=== PATIENT | male | born 1975 | race Caucasian/White ===

== ENCOUNTER 2018-01-04 14:25 | Emergency (ER) | payer OTHER ==
[2018-01-04 14:33] VITALS: BP 126/74; PULSE 64; TEMP 98.4; BMI 38.0
[2018-01-04] MEDS ORDERED: KETOROLAC TROMETHAMINE 60 MG/2 ML VIAL IM ONE (14:51)
[2018-01-04] MEDS ORDERED: KETOROLAC TROMETHAMINE 60 MG/2 ML VIAL ONE (14:57)
--- NOTE | 2018-01-04 14:57 | PDOC ---
History of Present Illness - General Chief Complaint: Pain, Acute Stated Complaint: LT KNEE Time Seen by Provider: 01/04/18 14:47 History Source: Patient Exam Limitations: Clinical Condition - History of Present Illness Initial Comments: 01/04/18 14:52 Patient with no sig Pmhx present with complains of worsening left knee pains for 3 days w/o trauma. Denies previous injury or trauma to knee. report very painful with ambulation and pain alternate between both side of knee and top of patella Timing/Duration: other (3 days) Severity: moderate Modifying Factors: improves with: rest. worse with: movement Associated Symptoms: denies: cough, diaphoresis, fever/chills, headaches, loss of appetite, malaise, nausea/vomiting, rash, seizure, shortness of breath, syncope, weakness, other Aspirin Received prior to arrival: Yes: no aspirin today Past History - Past Medical History Allergies/Adverse Reactions: Allergies Allergy/AdvReac Type Severity Reaction Status Date / Time No Known Allergies Allergy Verified 01/04/18 14:30 Home Medications: Ambulatory Orders Naproxen 500 mg PO BID PRN #20 tablet. 01/04/18 Asthma: Yes - Suicide/Smoking/Psychosocial Hx Smoking Status: No Smoking History: Never smoked Have you smoked in the past 12 months: No Number of Cigarettes Smoked Daily: 1.5 Information on smoking cessation initiated: No Hx Alcohol Use: No Drug/Substance Use Hx: No Substance Use Type: None Review of Systems - Review of Systems Able to Perform ROS?: Yes Is the patient limited Khmer proficient: No Constitutional: No: Chills, Diaphoresis, Fever, Loss of Appetite, Malaise, Night Sweats, Weakness, Weight Stable, Unintentional Wgt. Loss, Unexplained wgt Loss, Other HEENTM: No: Eye Pain, Blurred Vision, Tearing, Recent change in vision, Double Vision, Cataracts, Ear Pain, Ocular Prothesis, Ear Discharge, Nose Pain, Nose Congestion, Tinnitus, Nose Bleeding, Hearing Loss, Throat Pain, Throat Swelling , Mouth Pain, Dental Problems, Difficulty Swallowing, Mouth Swelling, Other Respiratory: No: Cough, Orthopnea, Shortness of Breath, SOB with Exertion, SOB at Rest, Stridor, Wheezing, Productive cough, Hemoptysis, Other Cardiac (ROS): No: Chest Pain, Edema, Irregular Heart Rate, Lightheadedness, Palpitations, Syncope, Chest Tightness, Other ABD/GI: No: Abdominal Distended, Abd. Pain w/ defecation, Blood Streaked Bowels , Constipated, Diarrhea, Difficulty Swallowing, Nausea, Poor Appetite, Poor Fluid Intake, Rectal Bleeding, Vomiting, Indigestion, Abdominal cramping, Tarry Stools, Other : No: Burning, Dysuria, Discharge, Frequency, Flank Pain, Hematuria, Incontinence, Pain, Urgency, Testicular Mass, Testicular Swelling, Lesions, Testicular Pain, Other Musculoskeletal: Yes: See HPI, Joint Pain (left knee), Muscle Pain (left knee). No: Back Pain, Gout, Muscle Weakness, Joint Stiffness Integumentary: No: Bruising, Change in Color, Change in Hair/Nails, Dryness, Erythema, Flushing, Lesions, Lumps, Pallor, Pruritus, Rash, Sweating, Other Neurological: No: Headache, Numbness, Paresthesia, Pre-Existing Deficit, Seizure , Tingling, Tremors, Weakness, Unsteady Gait, Ataxia, Dizziness, Other Endocrine: No: Symptoms Reported, Excessive Sweating, Flushing, Intolerance to Cold, Intolerance to Heat, Increased Hunger, Increased Thirst, Increased Urine, Unexplained Weight Gain, Unexplained Weight Loss, Change in Weight, Other Hematologic/Lymphatic: No: Symptoms Reported, See HPI, Anemia, Blood Clots, Easy Bleeding, Easy Bruising, Bleeding Diathesis, Lymph Node Abnormalities, Swollen Glands, Other All Other Systems: Reviewed and Negative *Physical Exam - Vital Signs Last Vital Signs Temp Pulse Resp BP Pulse Ox 98.4 F 64 18 126/74 100 01/04/18 14:27 01/04/18 14:27 01/04/18 14:27 01/04/18 14:27 01/04/18 14:27 - Physical Exam General Appearance: Yes: Nourished, Appropriately Dressed. No: Apparent Distress HEENT: positive: PAKO, Normal ENT Inspection, TMs Normal, Pharynx Normal Neck: positive: Trachea midline, Supple Respiratory/Chest: positive: Lungs Clear, Normal Breath Sounds. negative: Respiratory Distress, Accessory Muscle Use Cardiovascular: positive: Regular Rhythm, Regular Rate, S1, S2 Gastrointestinal/Abdominal: positive: Normal Bowel Sounds, Flat, Soft Musculoskeletal: positive: Normal Inspection, Other (moderate tenderness over medial and lateral collateral ligaments of lewft knee. netaive anterior and posterior draw knee test) Extremity: positive: Normal Capillary Refill, Normal Inspection, Tender ( moderate tenderness to medial and lateral collateral ligament) Integumentary: positive: Normal Color. negative: Swelling Neurologic: positive: Fully Oriented, Normal Mood/Affect, Normal Response, Motor Strength 5/5 ED Treatment Course - RADIOLOGY Radiology Studies Ordered: Category Date Time Status KNEE 3 POS-LEFT [RAD] Stat Radiology 01/04/18 14:51 Ordered Medical Decision Making - Medical Decision Making 01/04/18 14:58 Patient with h/o left knee pain w/o trauma. likely knee strain vs athritis vs gout. x-ray of left knee ordered. uric acid and ESR ordered . Toradol 60mg IM for pain. reassess in few mins after imaging 01/04/18 16:14 x-rays of left knee with no acute findings. gout labs negative. stable for d/c with orthopedics follow-up *DC/Admit/Observation/Transfer Diagnosis at time of Disposition: Left knee sprain Qualifiers: Encounter type: initial encounter Involved ligament of knee: unspecified ligament Qualified Code(s): S83.92XA - Sprain of unspecified site of left knee, initial encounter Knee pain, left Qualifiers: Chronicity: acute Qualified Code(s): M25.562 - Pain in left knee - Discharge Dispostion Disposition: HOME Condition at time of disposition: Good Decision to Admit order: No - Prescriptions Prescriptions: Naproxen 500 mg PO BID PRN #20 tablet.dr ONEIL Reason: knee pain - Referrals Referrals: Hermilo Egan MD [Staff Physician] - - Patient Instructions Additional Instructions: take medication as needed for pain. keep knee brace on until symptoms resolves. follow-up with orthopedics if symptoms persists - Post Discharge Activity Forms/Work/School Notes: Back to Work
== END 2018-01-04 16:20 | disposition home or self-care (01) ==
LOC: JERFT 14:25
PROC: 3E0233Z Introduction of Anti-inflammatory into Muscle, Percutaneous Approach (ICD-10-PCS; principal; 2018-01-04)
DX: S83.8X2A Sprain of other specified parts of left knee, initial encounter (principal); X58.XXXA Exposure to other specified factors, initial encounter; Y93.89 Activity, other specified; Y92.038 Other place in apartment as the place of occurrence of the external cause; Y99.8 Other external cause status
CPT/HCPCS: 36415; 73562-TC-LT-FY; 84550; 85651; 96372; 99281-25

== ENCOUNTER 2019-02-01 19:34 | Emergency (ER) | payer OTHER ==
[2019-02-01 20:02] VITALS: BP 122/82; PULSE 86; TEMP 97.6; BMI 26.4
[2019-02-01] MEDS ORDERED: TRIAMCINOLONE ACET 40MG/1ML VIAL IM ONE (20:08)
--- NOTE | 2019-02-01 20:09 | PDOC ---
History of Present Illness - General Chief Complaint: Rash Stated Complaint: ALLERGIC REACTION ALL OVER BODY Time Seen by Provider: 02/01/19 19:58 - History of Present Illness Initial Comments: 02/01/19 20:08 CHIEF COMPLAINT: poison maribel HISTORY OF PRESENT ILLNESS: 43 yo M presents to [facility] with rash. Patient reports that he accidentally touched poison maribel while helping his brother in the garden. He states he has had this before but "last time I waited 2 weeks and it spread all over." He reports that the rash has spread over his entire body including his groin. No recent travel or sick contacts. PAST MEDICAL HISTORY: Denies past medical history FAMILY HISTORY: Denies SOCIAL HISTORY: Denies tobacco, alcohol, illicit drug use. SURGICAL HISTORY: Denies ALLERGIES: No known drug allergies REVIEW OF SYSTEMS General/Constitutional: Denies fever or chills. Denies weakness, weight change. HEENT: Denies change in vision. Denies ear pain or discharge. Denies sore throat. Cardiovascular: Denies chest pain or shortness of breath. Respiratory: Denies cough, wheezing, or hemoptysis. Gastrointestinal: Denies nausea, vomiting, diarrhea or constipation. Denies rectal bleeding. Genitourinary: Denies dysuria, frequency, or change in urination. Musculoskeletal: Denies joint or muscle swelling or pain. Denies neck or back pain. Skin: "I have an allergic reaction to poison maribel." Neurologic: Denies headache, vertigo, loss of consciousness, or loss of sensation. PHYSICAL EXAM General Appearance: Well-appearing, appropriately dressed. No apparent distress , no intoxication. HEENT: EOMI, PERRLA, normal ENT inspection, normal voice, TMs normal, pharynx normal. No conjunctival pallor. No photophobia, scleral icterus. Neck: Supple. Trachea midline. No tenderness, rigidity, carotid bruit, stridor , lymphadenopathy, or thyromegaly. Respiratory/Chest: Lungs CTAB. No shortness of breath, chest tenderness, respiratory distress, accessory muscle use. No crackles, rales, rhonchi, stridor , wheezing, dullness Cardiovascular: RRR. S1, S2. No JVD, murmur, bradycardia, tachycardia. Vascular Pulses: Dorsalis-Pedis (R): 2+, Dorsalis-Pedis (L): 2+ Gastrointestinal/Abdominal: Normal bowel sounds. Abdomen soft, non-distended. No tenderness or rebound tenderness. No organomegaly, pulsatile mass, guarding , hernia, hepatomegaly, splenomegaly. Lymphatic: No adenopathy, tenderness. Musculoskeletal/Extremities: Normal inspection. FROM of all extremities, normal capillary refill. Pelvis Stable. No CVA tenderness. No tenderness to extremities, pedal edema, swelling, erythema or deformity. Integumentary: Scattered, pruritic, erythematous, vesicular rash to entire body. Appropriate color, dry, warm. No cyanosis, erythema, jaundice or rash Neurologic: residential sales associate II-XII intact. Fully oriented, alert. Appropriate mood/affect. Motor strength 5/5. No appreciable EOM palsy, facial droop or sensory deficit. 02/01/19 20:09 Past History - Past Medical History Allergies/Adverse Reactions: Allergies Allergy/AdvReac Type Severity Reaction Status Date / Time No Known Allergies Allergy Verified 01/04/18 14:30 Home Medications: Ambulatory Orders NK [No Known Home Medication] 02/01/19 Asthma: Yes - Suicide/Smoking/Psychosocial Hx Smoking Status: No Smoking History: Never smoked Have you smoked in the past 12 months: No Number of Cigarettes Smoked Daily: 1.5 Hx Alcohol Use: No Drug/Substance Use Hx: No Substance Use Type: None *Physical Exam - Vital Signs Last Vital Signs Temp Pulse Resp BP Pulse Ox 97.6 F 86 20 122/82 98 02/01/19 19:58 02/01/19 19:58 02/01/19 19:58 02/01/19 19:58 02/01/19 19:58 Medical Decision Making - Medical Decision Making 02/01/19 20:20 43 yo M presents to [facility] with rash. -Kenalog IM *DC/Admit/Observation/Transfer Diagnosis at time of Disposition: Poison maribel dermatitis - Discharge Dispostion Disposition: HOME Condition at time of disposition: Stable Decision to Admit order: No - Referrals Referrals: Devi Little MD [Staff Physician] - - Patient Instructions Printed Discharge Instructions: DI for Poison Maribel Allergy - Post Discharge Activity
[2019-02-01] MEDS ORDERED: TRIAMCINOLONE ACET 40MG/1ML VIAL ONE (20:13)
== END 2019-02-01 20:26 | disposition home or self-care (01) ==
LOC: JERFT 19:34
PROC: 3E033GC Introduction of Other Therapeutic Substance into Peripheral Vein, Percutaneous Approach (ICD-10-PCS; principal; 2019-02-01)
DX: L23.7 Allergic contact dermatitis due to plants, except food (principal)
CPT/HCPCS: 99281-25

== ENCOUNTER 2019-06-17 09:08 | Emergency (ER) | payer OTHER ==
[2019-06-17 09:41] VITALS: BMI 34.2
--- NOTE | 2019-06-17 09:43 | PDOC ---
History of Present Illness - General Chief Complaint: Chest Pain Stated Complaint: CHEST PAIN Time Seen by Provider: 06/17/19 09:42 History Source: Patient - History of Present Illness Initial Comments: 06/17/19 11:02 Mr. Norris is a 43 y/o man with hx asthma p/w three weeks of pleuritic chest pain alongside pain in his R shoulder. He reports that the pain began slowly over time. He describes the pain in his shoulder as an ache, that worsens with shoulder movement or palpation of the chest wall. He denies any shortness of breath, weakness, change in vision, palpitations, weakness, fevers, chills, cough. He denies any smoking, drug, or alcohol history. He denies any change in his symptoms since onset, but presents today due to the duration of symptoms. Past History - Past Medical History Allergies/Adverse Reactions: Allergies Allergy/AdvReac Type Severity Reaction Status Date / Time No Known Allergies Allergy Verified 06/17/19 09:38 Home Medications: Ambulatory Orders Methocarbamol [Robaxin -] 500 mg PO BID PRN #21 tablet 06/17/19 Asthma: Yes COPD: No - Immunization History Immunization Up to Date: Yes - Psycho Social/Smoking Cessation Hx Smoking Status: No Smoking History: Never smoked Have you smoked in the past 12 months: No Number of Cigarettes Smoked Daily: 1.5 Hx Alcohol Use: No Drug/Substance Use Hx: Yes (OCCASSIONALLY (MARIJUANA)) Substance Use Type: None Review of Systems - Review of Systems Able to Perform ROS?: Yes Comments:: 06/17/19 11:07 ROS: GENERAL/CONSTITUTIONAL: No fever or chills. No weakness. HEAD, EYES, EARS, NOSE AND THROAT: No change in vision. No ear pain or discharge. No sore throat. CARDIOVASCULAR: Chest pain. No shortness of breath RESPIRATORY: No cough, wheezing, or hemoptysis. GASTROINTESTINAL: No nausea, vomiting, diarrhea or constipation. GENITOURINARY: No dysuria, frequency, or change in urination. MUSCULOSKELETAL: Muscle pain. No joint or muscle swelling. No neck or back pain. SKIN: No rash NEUROLOGIC: No headache, vertigo, loss of consciousness, or change in strength/ sensation. ENDOCRINE: No increased thirst. No abnormal weight change HEMATOLOGIC/LYMPHATIC: No anemia, easy bleeding, or history of blood clots. ALLERGIC/IMMUNOLOGIC: No hives or skin allergy. *Physical Exam - Vital Signs Last Vital Signs Temp Pulse Resp BP Pulse Ox 98.1 F 16 L 16 116/74 97 06/17/19 09:38 06/17/19 09:38 06/17/19 09:38 06/17/19 09:38 06/17/19 09:38 - Physical Exam 06/17/19 11:08 PE: GENERAL: Awake, alert, and fully oriented, in no acute distress HEAD: No signs of trauma, normocephalic, atraumatic EYES: PERRLA, EOMI, sclera anicteric, conjunctiva clear ENT: Auricles normal inspection, hearing grossly normal, nares patent, oropharynx clear without exudates. Moist mucosa NECK: Normal ROM, supple, no lymphadenopathy, JVD, or masses LUNGS: No distress, speaks full sentences, clear to auscultation bilaterally HEART: Regular rate and rhythm, normal S1 and S2, no murmurs, rubs or gallops, peripheral pulses normal and equal bilaterally. ABDOMEN: R chest wall tenderness. Soft, nontender, normoactive bowel sounds. No guarding, no rebound. No masses EXTREMITIES : Pain with ranging of R shoulder. Normal inspection, no edema. No clubbing or cyanosis NEUROLOGICAL: Cranial nerves II through XII grossly intact. Normal speech, normal gait, no focal sensorimotor deficits SKIN: Warm, Dry, normal turgor, no rashes or lesions noted Heart Score/ECG Review - History History: Slightly suspicious - Electrocardiogram EKG: Normal - Age Age: </= 45 - Risk Factors Based on the list above the patient has:: No risk factors known - Troponin Troponin: </= normal limit - Score Heart Score - Total: 0 - ECG Intrepretation Rhythm: Regular Rhythm - [place]: Normal - ECG Impressions Normal ECG: Yes Non-specific ST Elevation: No Ischemic Changes: No ED Treatment Course - LABORATORY CBC & Chemistry Diagram: 06/17/19 10:20 06/17/19 10:20 Medical Decision Making - Medical Decision Making 06/17/19 11:12 43M w/hx asthma p/w 3 weeks of pleuritic chest pain, shoulder pain, pain with shoulder ranging c/w musculoskeletal pain. Differential also includes ACS, PE, although less likely given duration of symptoms. Plan: CBC CMP Cardiac profile EKG CXR CRP ESR D-dimer Dispo: Likely discharge pending labs, imaging EKG - no acute changes noted CXR - negative for acute process Troponin - negative D dimer - negative Plan for discharge with close PCP follow up Discharge - Discharge Information Problems reviewed: Yes Clinical Impression/Diagnosis: Right shoulder pain Qualifiers: Chronicity: unspecified Qualified Code(s): M25.511 - Pain in right shoulder Condition: Stable Disposition: HOME - Admission No - Additional Discharge Information Prescriptions: Methocarbamol [Robaxin -] 500 mg PO BID PRN #21 tablet PRN Reason: Pain - Follow up/Referral - Patient Discharge Instructions Patient Printed Discharge Instructions: DI for Atypical Chest Pain, DI for Shoulder Pain Additional Instructions: You were seen in the ER for chest and shoulder pain. Your bloodwork, Xray, and EKG were normal. Your pain may be due to muscle strain. Please alternate taking over the counter motrin and tylenol every 6 hours as needed for pain. Please see your primary care provider as soon as possible, in the next 7 days. Please return to the ER if you develop worsening chest pain, shortness of breath, weakness, or any other symptoms that are concerning to you. - Post Discharge Activity
[2019-06-17] MEDS ORDERED: METHOCARBAMOL 500 MG TABLET PO ONE (10:03)
[2019-06-17] MEDS ORDERED: ACETAMINOPHEN 1000 MG/100 ML VIAL (NON FORMULARY) IVPB ONE (10:04)
[2019-06-17] MEDS ORDERED: LIDOCAINE 5% TOPICAL PATCH TP ONE (10:04)
--- NOTE | 2019-06-17 10:19 | PDOC ---
Documentation entered by Belen Levine SCRIBE, acting as scribe for Mayra Walker MD. Mayra Walker MD: This documentation has been prepared by the Julianna jacobo Nirvannie, SCRIBE, under my direction and personally reviewed by me in its entirety. I confirm that the documentation accurately reflects all work, treatment, procedures, and medical decision making performed by me. Attending Attestation - Resident Resident Name: LolielviaEvens gonzalez - ED Attending Attestation I have performed the following: I have examined & evaluated the patient, The case was reviewed & discussed with the resident, I agree w/resident's findings & plan, Exceptions are as noted - HPI HPI: 06/17/19 10:14 Mr. Norris is a 43-year-old male with a history of asthma who presents emergency department with a complaint of right-sided chest pain The patient states he was in his usual state of health untill approximately 3 weeks ago. Since then he has noted right-sided upper chest pain which radiates into his right scapular region. The pain is present daily it is worse with certain movements of the right upper extremity as well as palpation of the scapular region. He is also noted swelling of the supra clavicular region. He is once tried Motrin which minimally improved his symptoms. Currently he rates his pain a 7/10 He denies recent cough, hemoptysis. He denies shortness of breath. Prior to 3 weeks ago no symptoms like this before. No recent travel. No fevers or chills. No nausea, vomiting, diarrhea. No lower extremity edema. Patient denies family history of sudden or hypercoagulability Patient denies surgical history. Patient has no other history besides asthma - Physicial Exam PE: 06/17/19 10:18 GENERAL: The patient is in no acute distress. ENT: Ears normal, nares patent, oropharynx clear without exudates. Moist mucous membranes. NECK: Normal range of motion, supple, no nuchal rigidity LUNGS: Breath sounds equal, clear to auscultation bilaterally. No wheezes, and no crackles. HEART:Regular rate and rhythm, normal S1 and S2 without murmur, rub or gallop. ABDOMEN: Soft, nontender, normoactive bowel sounds. EXTREMITIES: Normal range of motion, no edema. NEUROLOGICAL: Cranial nerves II through XII grossly intact. Normal speech. No focal neurological deficits. MUSCULOSKELETAL: Right scapular tenderness, no chest wall tenderness SKIN: No rash appreciated - Medical Decision Making 06/17/19 10:18 43-year-old male presenting to the emergency department with a complaint of right-sided chest pain Differential includes cardiac ischemia, pe, asthma exacerbation, pneumonia, pneumothorax, pleural effusion, costochondritis, pericarditis, GERD. EKG: Twelve-lead EKG was performed and reviewed by me. There is normal sinus rhythm with a normal rate. The axis is normal. The intervals are normal. There are no ST or T wave abnormalities. Impression: Normal twelve-lead EKG Will do: Labs EKG already performed Tylenol/Robaxin for pain Chest x-ray Reassess 06/17/19 11:25 Laboratory Tests 06/17/19 06/17/19 06/17/19 10:20 10:20 10:20 WBC 7.7 Hgb 15.3 Hct 45.4 Plt Count 257 D-Dimer BUN 12.5 Creatinine 0.9 Creatine Kinase 147 Troponin I < 0.02 06/17/19 10:20 WBC Hgb Hct Plt Count D-Dimer 346 BUN Creatinine Creatine Kinase Troponin I 06/17/19 12:08 Upon reassessment, patient states he feels much better. We will discharge with pain medications and Robaxin Follow-up with PMD Clinical impression: Musculoskeletal pain, initial presentation
[2019-06-17] MEDS ORDERED: METHOCARBAMOL 500 MG TABLET ONE (10:26)
[2019-06-17] MEDS ORDERED: LIDOCAINE 5% TOPICAL PATCH ONE (10:26)
[2019-06-17] MEDS ORDERED: ACETAMINOPHEN INJECTION 100 ML IVPB ONE (10:26)
[2019-06-17 10:38] LABS: BASO % 1.2 % (0-2.0); EOS % 4.6 % (0-4.5); HEMATOCRIT 45.4 % (35.4-49); HEMOGLOBIN 15.3 GM/dL (11.7-16.9); LYMPH % 24.9 % (8-40); MCH 28.7 pg (25.7-33.7); MCHC 33.6 g/dl (32.0-35.9); MEAN CELL VOLUME 85.4 fl (80-96); MEAN PLT VOLUME 7.2 fl (7.5-11.1); MONO % 6.5 % (3.8-10.2); NEUT % 62.8 % (42.8-82.8); PLATELET COUNT 257 K/MM3 (134-434); RBC 5.32 M/mm3 (4.00-5.60); RDW 13.4 % (11.9-15.9); WHITE BLOOD COUNT 7.7 K/mm3 (4.0-10.0)
[2019-06-17 10:52] LABS: INR 1.03 (0.83-1.09); PROTHROMBIN TIME (PATIENT) 12.2 SEC (9.7-13.0)
[2019-06-17 11:24] LABS: BILIRUBIN,TOTAL 0.4 mg/dL (0.2-1); BLOOD UREA NITROGEN 12.5 mg/dL (7-18); CREATININE 0.9 mg/dL (0.55-1.3)
[2019-06-17 11:59] LABS: ERYTHROCYTE SEDIMENTATION RATE 6 mm/hr (0-10)
[2019-06-17 12:14] VITALS: BP 112/68; PULSE 98; TEMP 98
--- NOTE | 2019-06-17 12:53 | EKG ---
Test Reason : Blood Pressure : / mmHG Vent. Rate : 069 BPM Atrial Rate : 069 BPM P-R Int : 128 ms QRS Dur : 096 ms QT Int : 422 ms P-R-T Axes : 054 070 065 degrees QTc Int : 452 ms NORMAL SINUS RHYTHM NORMAL ECG WHEN COMPARED WITH ECG OF 10-JUL-2009 21:35, NO SIGNIFICANT CHANGE WAS FOUND Confirmed by ROZ HOWARD MD ([id number]) on 06/17/2019 12:52:57 PM Referred By: Confirmed By:ROZ HOWARD MD
[2019-06-17] MEDS ORDERED: LIDOCAINE PATCH REMOVAL MC SCH (22:00)
== END 2019-06-17 12:05 | disposition home or self-care (01) ==
LOC: JER 09:08
PROC: 3E033NZ Introduction of Analgesics, Hypnotics, Sedatives into Peripheral Vein, Percutaneous Approach (ICD-10-PCS; principal; 2019-06-17)
DX: R07.89 Other chest pain (principal); M25.511 Pain in right shoulder
CPT/HCPCS: 36415; 71046-TC-FY; 80053; 82550; 84484; 85025; 85379; 85610; 85651; 86140; 93005; 93010; 99283-25; J0131

== ENCOUNTER 2020-02-28 01:17 | Emergency (ER) | payer OTHER ==
[2020-02-28] MEDS ORDERED: ALBUTEROL SO4 2.5/IPRATROPIUM 0.5 INH SOL 3 ML VIAL.NEB. NEB ONE ×2 (01:24→02:05)
[2020-02-28 01:58] VITALS: BP 143/76; PULSE 72; TEMP 98.6; BMI 21.1
--- NOTE | 2020-02-28 02:02 | PDOC ---
History of Present Illness - General Chief Complaint: Asthma Stated Complaint: ASTHMA Time Seen by Provider: 02/28/20 01:56 History Source: Patient Exam Limitations: No Limitations - History of Present Illness Initial Comments: 02/28/20 03:34 Pt states that he has not had an asthma attack in a long time and today he smoked and now has an asthma exacerbation. He has no meds at home. Is this a multiple visit Asthma Patient?: No Past History - Travel History Traveled outside of the country in the last 30 days: No Close contact w/someone who was outside of country & ill: No - Medical History Allergies/Adverse Reactions: Allergies Allergy/AdvReac Type Severity Reaction Status Date / Time No Known Allergies Allergy Verified 02/28/20 01:29 Home Medications: Ambulatory Orders Methocarbamol [Robaxin -] 500 mg PO BID PRN #21 tablet 06/17/19 Albuterol Sulfate Inhaler - [Ventolin Hfa Inhaler -] 1 - 2 inh PO Q4H #1 inhaler 02/28/20 Asthma: Yes COPD: No - Immunization History Immunization Up to Date: Yes - Psycho-Social/Smoking History Smoking Status: No Smoking History: Never smoked Have you smoked in the past 12 months: No Number of Cigarettes Smoked Daily: 1.5 Information on smoking cessation initiated: No - Substance Abuse Hx (Audit-C & DAST Scrn) How often the patient has a drink containing alcohol: Never Score: In Men: 4 or > Positive; In Women: 3 or > Positive: 0 Screen Result (Pos requires Nsg. Audit-10AR): Negative In the last yr the pt used illegal drug/Rx for NonMed reason: No Score: Yes response is considered Positive: 0 Screen Result (Positive result requires Nsg. DAST-10): Negative *Physical Exam - Vital Signs Last Vital Signs Temp Pulse Resp BP Pulse Ox 98.6 F 72 20 143/76 99 02/28/20 01:28 02/28/20 01:28 02/28/20 01:28 02/28/20 01:28 02/28/20 01:57 Medical Decision Making - Medical Decision Making 02/28/20 02:02 PE GENERAL: Awake, alert, and fully oriented, in no acute distress HEAD: No signs of trauma, normocephalic, atraumatic EYES: PERRLA, EOMI, sclera anicteric, conjunctiva clear ENT: Auricles normal inspection, hearing grossly normal, nares patent, oropharynx clear without exudates. Moist mucosa NECK: Normal ROM, supple, no lymphadenopathy, JVD, or masses LUNGS: No distress, speaks full sentences, clear to auscultation bilaterally HEART: Regular rate and rhythm, normal S1 and S2, no murmurs, rubs or gallops, peripheral pulses normal and equal bilaterally. ABDOMEN: Soft, nontender, normoactive bowel sounds. No guarding, no rebound. No masses EXTREMITIES : Normal inspection, Normal range of motion, no edema. No clubbing or cyanosis. NEUROLOGICAL: Cranial nerves II through XII grossly intact. Normal speech, normal gait, no focal sensorimotor deficits SKIN: Warm, Dry, normal turgor, no rashes or lesions noted 02/28/20 03:33 Pt feeling better after duoneb and decadron. Discharge - Discharge Information Problems reviewed: Yes Clinical Impression/Diagnosis: Asthma attack Condition: Improved Disposition: HOME - Admission No - Additional Discharge Information Prescriptions: Albuterol Sulfate Inhaler - [Ventolin Hfa Inhaler -] 1 - 2 inh PO Q4H #1 inhaler - Follow up/Referral - Patient Discharge Instructions Patient Printed Discharge Instructions: Asthma -- Adult - Post Discharge Activity
[2020-02-28] MEDS ORDERED: DEXAMETHASONE LIQUID 0.5 MG/5 ML PO ONE (02:05)
[2020-02-28] MEDS ORDERED: DEXAMETHASONE 4 MG TABLET (FP) ONE (02:15)
== END 2020-02-28 03:36 | disposition home or self-care (01) ==
LOC: JER 01:17
PROC: 3E0F7GC Introduction of Other Therapeutic Substance into Respiratory Tract, Via Natural or Artificial Opening (ICD-10-PCS; principal; 2020-02-28)
DX: J45.909 Unspecified asthma, uncomplicated (principal)
CPT/HCPCS: 99283-25

== ENCOUNTER 2021-06-29 21:55 | Emergency (ER) | payer OTHER ==
[2021-06-29] MEDS ORDERED: DEXAMETHASONE SOD PHOSPHATE 10 MG/1 ML VIAL IVPUSH ONE (22:03)
[2021-06-29] MEDS ORDERED: DEXAMETHASONE SOD PHOSPHATE 10 MG/1 ML VIAL ONE (22:09)
[2021-06-29] MEDS ORDERED: ALBUTEROL SO4 2.5/IPRATROPIUM 0.5 INH SOL 3 ML VIAL.NEB. NEB ONE ×2 (22:12→22:37)
[2021-06-29] MEDS: ALBUTEROL SO4 2.5/IPRATROPIUM 0.5 INH SOL 3 ML VIAL.NEB. NEB SCH ×4 (22:14→22:40)
[2021-06-29 22:21] VITALS: BP 128/78; PULSE 100; TEMP 97.5; BMI 31.8
[2021-06-29] MEDS ORDERED: DEXAMETHASONE SOD PHOSPHATE 10 MG/1 ML VIAL IM ONE (22:22)
[2021-06-29] MEDS ORDERED: MAGNESIUM SULF 50% (8.12 MEQ/2 ML-1 GM VIAL) IVPB ONE (22:43)
[2021-06-29] MEDS ORDERED: MAGNESIUM SULFATE IN WATER 2 GM/50 ML IVPB IVPB ONE (22:48)
[2021-06-29 23:03] LABS: BASO % 1.2 % (0-2.0); EOS % 13.2 % (0-4.5); HEMATOCRIT 40.7 % (35.4-49); HEMOGLOBIN 13.8 GM/dL (11.7-16.9); MCH 28.1 pg (25.7-33.7); MCHC 33.9 g/dl (32.0-35.9); MEAN CELL VOLUME 82.9 fl (80-96); MEAN PLT VOLUME 6.6 fl (7.5-11.1); NEUT % 52.6 % (42.8-82.8); PLATELET COUNT 257 10^3/uL (134-434); RBC 4.91 M/mm3 (4.00-5.60); RDW 13.3 % (11.9-15.9); WHITE BLOOD COUNT 11.5 K/mm3 (4.0-10.0)
[2021-06-29 23:23] LABS: CHLORIDE 110 mmol/L (98-107); SODIUM 145 mmol/L (136-145)
[2021-06-29 23:24] LABS: CALCIUM 8.5 mg/dL (8.5-10.1)
[2021-06-29 23:25] LABS: ALBUMIN 3.8 g/dl (3.4-5.0); ANION GAP 8 MMOL/L (8-16); BLOOD UREA NITROGEN 12.7 mg/dL (7-18); CO2 26 mmol/L (21-32); GLUCOSE,RANDOM 119 mg/dL (74-106)
[2021-06-29 23:27] LABS: MAGNESIUM 1.8 mg/dL (1.8-2.4)
[2021-06-29] MEDS ORDERED: POTASSIUM CHLORIDE TABS 20 MEQ TABLET.ER (FP) PO ONE ×2 (23:27→23:41)
[2021-06-29 23:28] LABS: CREATININE 1.4 mg/dL (0.55-1.3)
[2021-06-29 23:30] LABS: ALK PHOS 74 U/L (45-117); TOT PROT 6.5 g/dl (6.4-8.2)
[2021-06-29 23:35] LABS: SGOT/AST 11 U/L (15-37)
[2021-06-30 00:15] LABS: BILIRUBIN,TOTAL 0.2 mg/dL (0.2-1); SGPT/ALT 34 U/L (13-61)
[2021-06-30] MEDS ORDERED: POTASSIUM CHLORIDE TABS 20 MEQ TABLET.ER (FP) PO ONE (00:24)
== END 2021-06-30 00:53 | disposition home or self-care (01) ==
LOC: JER 21:55
PROC: 3E033NZ Introduction of Analgesics, Hypnotics, Sedatives into Peripheral Vein, Percutaneous Approach (ICD-10-PCS; principal; 2021-06-29)
PROC: 3E0F7GC Introduction of Other Therapeutic Substance into Respiratory Tract, Via Natural or Artificial Opening (ICD-10-PCS; 2021-06-29)
PROC: 3E023NZ Introduction of Analgesics, Hypnotics, Sedatives into Muscle, Percutaneous Approach (ICD-10-PCS; 2021-06-29)
PROC: 3E033GC Introduction of Other Therapeutic Substance into Peripheral Vein, Percutaneous Approach (ICD-10-PCS; 2021-06-29)
DX: J45.21 Mild intermittent asthma with (acute) exacerbation (principal)
CPT/HCPCS: 36415; 71045-TC-FY; 80053; 82550; 82553; 83735; 84484; 85025; 93005; 93010; 99285-25; J1100

== ENCOUNTER 2021-08-02 07:17 | Emergency (ER) | payer OTHER ==
[2021-08-02 07:25] VITALS: BMI 33.9
[2021-08-02] MEDS ORDERED: ALBUTEROL SO4 2.5/IPRATROPIUM 0.5 INH SOL 3 ML VIAL.NEB. NEB ONE ×3 (07:37→08:35)
[2021-08-02] MEDS ORDERED: DEXAMETHASONE SOD PHOSPHATE 10 MG/1 ML VIAL IM ONE (07:38)
[2021-08-02 09:06] VITALS: BP 113/79; PULSE 86; TEMP 97.8
[2021-08-03 06:07] LABS: SARS-CoV-2 NAA Not Detected (Not Detected)
== END 2021-08-02 09:04 | disposition home or self-care (01) ==
LOC: JER 07:17
PROC: 3E0F7GC Introduction of Other Therapeutic Substance into Respiratory Tract, Via Natural or Artificial Opening (ICD-10-PCS; principal; 2021-08-02)
PROC: 3E0F7GC Introduction of Other Therapeutic Substance into Respiratory Tract, Via Natural or Artificial Opening (ICD-10-PCS; 2021-08-02)
PROC: 3E0F7GC Introduction of Other Therapeutic Substance into Respiratory Tract, Via Natural or Artificial Opening (ICD-10-PCS; 2021-08-02)
PROC: 3E023GC Introduction of Other Therapeutic Substance into Muscle, Percutaneous Approach (ICD-10-PCS; 2021-08-02)
DX: J45.901 Unspecified asthma with (acute) exacerbation (principal); R05.1 Acute cough; R09.81 Nasal congestion
CPT/HCPCS: 87804; 94640; 96372; 99284-25; C9803; J1100; U0003; U0005

== ENCOUNTER 2023-03-06 21:17 | Observation (INO) | payer OTHER ==
[2023-03-06] MEDS ORDERED: ALBUTEROL SO4 2.5/IPRATROPIUM 0.5 INH SOL 3 ML VIAL.NEB. NEB ONE (21:25)
[2023-03-06] MEDS ORDERED: DEXAMETHASONE SOD PHOSPHATE 10 MG/1 ML VIAL IVPUSH ONE (21:26)
[2023-03-06 21:27] VITALS: BMI 32.5
[2023-03-06] MEDS ORDERED: MAGNESIUM SULF 50% (8.12 MEQ/2 ML-1 GM VIAL) IVPB ONE (21:29)
[2023-03-06] MEDS: ALBUTEROL SO4 2.5/IPRATROPIUM 0.5 INH SOL 3 ML VIAL.NEB. NEB SCH ×3 (21:30→22:00)
[2023-03-06] MEDS ORDERED: DEXAMETHASONE SOD PHOSPHATE 10 MG/1 ML VIAL ONE (21:50)
[2023-03-06] MEDS ORDERED: MAGNESIUM SULFATE IN WATER 2 GM/50 ML IVPB IVPB ONE (21:50)
[2023-03-06 22:35] LABS: BASO % 0.7 % (0-2.0); HEMATOCRIT 45.3 % (35.4-49); HEMOGLOBIN 15.5 GM/dL (11.7-16.9); LYMPH % 20.7 % (8-40); MCH 28.6 pg (25.7-33.7); MCHC 34.2 g/dl (32.0-35.9); MEAN CELL VOLUME 83.7 fl (80-96); MEAN PLT VOLUME 7.1 fl (7.5-11.1); MONO % 7.1 % (3.8-10.2); NEUT % 65.5 % (42.8-82.8); PLATELET COUNT 231 10^3/uL (134-434); RBC 5.41 M/mm3 (4.00-5.60); RDW 14.4 % (11.9-15.9); WHITE BLOOD COUNT 12.7 K/mm3 (4.0-10.0)
[2023-03-06 22:49] LABS: INR 1.16 (0.83-1.09); PROTHROMBIN TIME (PATIENT) 13.4 SEC (9.7-13.0)
[2023-03-06 22:52] LABS: ACTIVATED PTT 25.8 SECONDS (25.2-36.5)
[2023-03-06 22:59] LABS: VENOUS BASE EXCESS -0.6 mmol/L (-2-2); VENOUS O2 SATURATION 89.9 % (70-80); VENOUS PCO2 35.8 mmHg (38-52); VENOUS PH 7.426 (7.310-7.410)
[2023-03-06 23:02] LABS: CHLORIDE 107 mmol/L (98-107); SODIUM 139 mmol/L (136-145)
[2023-03-06 23:04] LABS: ALBUMIN 3.9 g/dl (3.4-5.0); BLOOD UREA NITROGEN 12.2 mg/dL (7-18); CALCIUM 8.9 mg/dL (8.5-10.1); CO2 22 mmol/L (21-32); GLUCOSE,RANDOM 110 mg/dL (74-106)
[2023-03-06 23:57] LABS: ALK PHOS 80 U/L (45-117); BILIRUBIN,TOTAL 0.8 mg/dL (0.2-1); CREATININE 1.2 mg/dL (0.55-1.3); SGOT/AST 61 U/L (15-37); SGPT/ALT 42 U/L (13-61); TOT PROT 7.7 g/dl (6.4-8.2)
[2023-03-07 00:46] LABS: ANION GAP 10 MMOL/L (8-16); POTASSIUM 6.3 mmol/L (3.5-5.1)
[2023-03-07 01:44] LABS: POTASSIUM 3.5 mmol/L (3.5-5.1)
[2023-03-07 01:45] LABS: CALCIUM 8.6 mg/dL (8.5-10.1)
[2023-03-07 01:46] LABS: BLOOD UREA NITROGEN 11.1 mg/dL (7-18)
[2023-03-07 01:50] LABS: CREATININE 1.1 mg/dL (0.55-1.3)
[2023-03-07] MEDS ORDERED: ALBUTEROL SULFATE 0.021% (0.63 MG/3 ML) VIAL.NEB NEB PRN (04:48)
[2023-03-07] MEDS ORDERED: methylPREDNISolone NA SUCC 40 MG/1 ML VIAL IVPUSH SCH ×2 (05:00→06:25)
[2023-03-07] MEDS ORDERED: methylPREDNISolone NA SUCC 40 MG/1 ML VIAL ONE (05:20)
[2023-03-07] MEDS: MAG HYDROX/AL HYDROX/SIMETH 30 ML UNIT-DOSE CUP PO SCH ×3 (06:33→18:28)
[2023-03-07 06:41] LABS: HEMATOCRIT 43.3 % (35.4-49); HEMOGLOBIN 14.5 GM/dL (11.7-16.9); MCH 28.4 pg (25.7-33.7); MCHC 33.4 g/dl (32.0-35.9); MEAN CELL VOLUME 84.9 fl (80-96); MEAN PLT VOLUME 7.3 fl (7.5-11.1); PLATELET COUNT 254 10^3/uL (134-434)
[2023-03-07 06:58] LABS: POTASSIUM 3.8 mmol/L (3.5-5.1)
[2023-03-07 07:00] LABS: CALCIUM 8.9 mg/dL (8.5-10.1)
[2023-03-07 07:01] LABS: ALBUMIN 3.9 g/dl (3.4-5.0); BLOOD UREA NITROGEN 11.4 mg/dL (7-18); MAGNESIUM 2.1 mg/dL (1.8-2.4)
[2023-03-07 07:04] LABS: CREATININE 1.1 mg/dL (0.55-1.3); PHOSPHOROUS 2.1 mg/dL (2.5-4.9)
[2023-03-07 07:05] LABS: BILIRUBIN,TOTAL 0.5 mg/dL (0.2-1); TOT PROT 7.4 g/dl (6.4-8.2)
[2023-03-07] MEDS ORDERED: ALBUTEROL SO4 2.5/IPRATROPIUM 0.5 INH SOL 3 ML VIAL.NEB. NEB ONE (07:37)
[2023-03-07] MEDS: ALBUTEROL SO4 2.5/IPRATROPIUM 0.5 INH SOL 3 ML VIAL.NEB. NEB SCH ×4 (07:38→20:17)
[2023-03-07 08:43] LABS: ANISOCYTOSIS 3+; MACROCYTOSIS 0
[2023-03-07] MEDS ORDERED: ENOXAPARIN NA (PORCINE) 40 MG/0.4 ML DISP.SYRIN SQ ONE (09:19)
[2023-03-07] MEDS: MONTELUKAST NA 10 MG TABLET PO SCH (09:23)
[2023-03-07] MEDS: BUDESONIDE 0.5 MG/2 ML INH SUSP VIAL NEB SCH ×2 (09:23→20:16)
[2023-03-07] MEDS: ENOXAPARIN NA (PORCINE) 40 MG/0.4 ML DISP.SYRIN SQ SCH (09:23)
[2023-03-07] MEDS: methylPREDNISolone NA SUCC 40 MG/1 ML VIAL IVPUSH SCH ×2 (14:16→21:48)
[2023-03-07 20:03] VITALS: RESP 17
[2023-03-08] MEDS: MAG HYDROX/AL HYDROX/SIMETH 30 ML UNIT-DOSE CUP PO SCH ×2 (01:13→05:40)
[2023-03-08 04:20] VITALS: BP 119/62; PULSE 76; TEMP 98.1
[2023-03-08] MEDS: methylPREDNISolone NA SUCC 40 MG/1 ML VIAL IVPUSH SCH (05:40)
[2023-03-08] MEDS: ALBUTEROL SO4 2.5/IPRATROPIUM 0.5 INH SOL 3 ML VIAL.NEB. NEB SCH ×2 (08:13→11:32)
[2023-03-08] MEDS: BUDESONIDE 0.5 MG/2 ML INH SUSP VIAL NEB SCH (08:14)
[2023-03-08] MEDS: ENOXAPARIN NA (PORCINE) 40 MG/0.4 ML DISP.SYRIN SQ SCH (09:14)
[2023-03-08] MEDS: MONTELUKAST NA 10 MG TABLET PO SCH (09:14)
== END 2023-03-08 13:10 | disposition home or self-care (01) ==
LOC: JER 21:17 → JERBED 03-07 01:30 → J5S 03-07 11:50
PROVIDERS: ADMIT Internal Medicine; ATTEND Student in an Organized Health Care Education/Training Program
PROC: 3E0F7GC Introduction of Other Therapeutic Substance into Respiratory Tract, Via Natural or Artificial Opening (ICD-10-PCS; principal; 2023-03-07)
PROC: 3E033GC Introduction of Other Therapeutic Substance into Peripheral Vein, Percutaneous Approach (ICD-10-PCS; 2023-03-07)
PROC: 3E023GC Introduction of Other Therapeutic Substance into Muscle, Percutaneous Approach (ICD-10-PCS; 2023-03-07)
PROC: 3E033GC Introduction of Other Therapeutic Substance into Peripheral Vein, Percutaneous Approach (ICD-10-PCS; 2023-03-07)
DX: J45.901 Unspecified asthma with (acute) exacerbation (principal); Z87.891 Personal history of nicotine dependence; Z29.8 Encounter for other specified prophylactic measures
CPT/HCPCS: 0241U-QW; 36415; 71045-TC-FY; 80048; 80053; 82803; 83735; 84100; 84484; 85025; 85610; 85730; 93005; 93010; 94640; 96372; 96374; 96375; 96376; 99285-25; G0378; J1100

== ENCOUNTER 2023-07-21 13:00 | Emergency (ER) | payer OTHER ==
[2023-07-21 13:04] VITALS: BP 130/83; PULSE 97; RESP 22; TEMP 98.1; BMI 30.5
[2023-07-21] MEDS ORDERED: ALBUTEROL SO4 2.5/IPRATROPIUM 0.5 INH SOL 3 ML VIAL.NEB. NEB ONE ×2 (13:15→13:16)
[2023-07-21] MEDS ORDERED: predniSONE 20 MG TABLET (UD) ONE (13:19)
[2023-07-21] MEDS ORDERED: predniSONE 20 MG TABLET (UD) PO ONE (13:19)
== END 2023-07-21 13:59 | disposition home or self-care (01) ==
LOC: JERFT 13:00
PROC: 3E0F7GC Introduction of Other Therapeutic Substance into Respiratory Tract, Via Natural or Artificial Opening (ICD-10-PCS; principal; 2023-07-21)
DX: J45.909 Unspecified asthma, uncomplicated (principal); R06.02 Shortness of breath; Z20.822 Contact with and (suspected) exposure to COVID-19
CPT/HCPCS: 0241U-QW; 99283-25

== ENCOUNTER 2023-08-01 17:35 | Emergency (ER) | payer OTHER ==
[2023-08-01] MEDS ORDERED: ALBUTEROL SO4 2.5/IPRATROPIUM 0.5 INH SOL 3 ML VIAL.NEB. NEB ONE (17:44)
[2023-08-01] MEDS: ALBUTEROL SO4 2.5/IPRATROPIUM 0.5 INH SOL 3 ML VIAL.NEB. NEB ONE (17:48)
[2023-08-01 17:49] VITALS: BP 120/79; PULSE 100; RESP 20; TEMP 97.5; BMI 29.8
[2023-08-01] MEDS ORDERED: DEXAMETHASONE 4 MG TABLET (FP) ONE (17:54)
[2023-08-01] MEDS: DEXAMETHASONE 4 MG TABLET (FP) PO ONE (17:57)
[2023-08-01] MEDS ORDERED: ALBUTEROL SO4 0.083% IH SOL 2.5 MG/3 ML VIAL.NEB. NEB ONE (18:16)
[2023-08-01] MEDS: ALBUTEROL SO4 0.083% IH SOL 2.5 MG/3 ML VIAL.NEB. NEB ONE (18:18)
== END 2023-08-01 19:34 | disposition home or self-care (01) ==
LOC: JER 17:35
PROC: 3E0F7GC Introduction of Other Therapeutic Substance into Respiratory Tract, Via Natural or Artificial Opening (ICD-10-PCS; principal; 2023-08-01)
PROC: 3E0F7GC Introduction of Other Therapeutic Substance into Respiratory Tract, Via Natural or Artificial Opening (ICD-10-PCS; 2023-08-01)
DX: R06.02 Shortness of breath (principal); J45.901 Unspecified asthma with (acute) exacerbation
CPT/HCPCS: 93005; 93010; 99283-25

== ENCOUNTER 2023-08-10 14:51 | Emergency (ER) | payer OTHER ==
[2023-08-10] MEDS ORDERED: ALBUTEROL SO4 2.5/IPRATROPIUM 0.5 INH SOL 3 ML VIAL.NEB. NEB ONE ×3 (14:58→15:13)
[2023-08-10] MEDS: ALBUTEROL SO4 2.5/IPRATROPIUM 0.5 INH SOL 3 ML VIAL.NEB. NEB ONE (15:00)
[2023-08-10 15:05] VITALS: TEMP 97.5; BMI 30.5
[2023-08-10] MEDS ORDERED: methylPREDNISolone NA SUCC 125 MG/2 ML VIAL ONE (15:13)
[2023-08-10] MEDS: methylPREDNISolone NA SUCC 125 MG/2 ML VIAL IVPUSH ONE (15:26)
[2023-08-10 15:30] LABS: BASO % 1.1 % (0-2.0); HEMATOCRIT 44.7 % (35.4-49); HEMOGLOBIN 15.1 GM/dL (11.7-16.9); LYMPH % 31.7 % (8-40); MCH 28.2 pg (25.7-33.7); MCHC 33.7 g/dl (32.0-35.9); MEAN CELL VOLUME 83.6 fl (80-96); MEAN PLT VOLUME 6.6 fl (7.5-11.1); MONO % 5.9 % (3.8-10.2); NEUT % 54.3 % (42.8-82.8); PLATELET COUNT 239 10^3/uL (134-434); RBC 5.35 M/mm3 (4.00-5.60)
[2023-08-10 15:59] LABS: POTASSIUM 3.2 mmol/L (3.5-5.1)
[2023-08-10 16:01] LABS: ALBUMIN 3.9 g/dl (3.4-5.0); BLOOD UREA NITROGEN 13.9 mg/dL (7-18); MAGNESIUM 2.2 mg/dL (1.8-2.4)
[2023-08-10] MEDS ORDERED: ALBUTEROL SO4 0.083% IH SOL 2.5 MG/3 ML VIAL.NEB. NEB ONE (16:01)
[2023-08-10] MEDS ORDERED: POTASSIUM CHLORIDE TABS 20 MEQ TABLET.ER (FP) PO ONE (16:05)
[2023-08-10 16:06] LABS: BILIRUBIN,TOTAL 0.6 mg/dL (0.2-1); TOT PROT 6.9 g/dl (6.4-8.2)
[2023-08-10] MEDS: ALBUTEROL SULFATE 0.021% (0.63 MG/3 ML) VIAL.NEB NEB ONE (16:09)
[2023-08-10] MEDS: ALBUTEROL SO4 0.083% IH SOL 2.5 MG/3 ML VIAL.NEB. NEB ONE (16:09)
[2023-08-10] MEDS: POTASSIUM CHLORIDE TABS 20 MEQ TABLET.ER (FP) PO ONE (16:10)
[2023-08-10] MEDS ORDERED: ALBUTEROL SO4 HFA INHALER IH ONE (16:35)
[2023-08-10] MEDS: ALBUTEROL SO4 HFA INHALER IH ONE (16:38)
[2023-08-10 17:12] VITALS: BP 120/88; PULSE 82; RESP 16
== END 2023-08-10 17:11 | disposition home or self-care (01) ==
LOC: JER 14:51
PROC: 3E033GC Introduction of Other Therapeutic Substance into Peripheral Vein, Percutaneous Approach (ICD-10-PCS; principal; 2023-08-10)
PROC: 3E0F7GC Introduction of Other Therapeutic Substance into Respiratory Tract, Via Natural or Artificial Opening (ICD-10-PCS; 2023-08-10)
PROC: 3E0F7GC Introduction of Other Therapeutic Substance into Respiratory Tract, Via Natural or Artificial Opening (ICD-10-PCS; 2023-08-10)
PROC: 3E0F7GC Introduction of Other Therapeutic Substance into Respiratory Tract, Via Natural or Artificial Opening (ICD-10-PCS; 2023-08-10)
DX: J45.901 Unspecified asthma with (acute) exacerbation (principal)
CPT/HCPCS: 36415; 80053; 83735; 85025; 99285-25

== ENCOUNTER 2023-11-25 08:57 | Emergency (ER) | payer OTHER ==
[2023-11-25 09:07] VITALS: BP 119/83; PULSE 66; RESP 18; TEMP 98.2; BMI 31.1
[2023-11-25] MEDS ORDERED: ACETAMINOPHEN 325 MG TABLET (FP) ONE (09:54)
[2023-11-25] MEDS ORDERED: IBUPROFEN 400 MG TABLET (FP) PO ONE (09:55)
[2023-11-25] MEDS: IBUPROFEN 400 MG TABLET (FP) PO ONE (09:57)
[2023-11-25] MEDS: ACETAMINOPHEN 325 MG TABLET (FP) PO ONE (09:58)
== END 2023-11-25 11:53 | disposition home or self-care (01) ==
LOC: JERFT 08:57
DX: S93.401A Sprain of unspecified ligament of right ankle, initial encounter (principal); M25.551 Pain in right hip; M79.651 Pain in right thigh; W10.9XXA Fall (on) (from) unspecified stairs and steps, initial encounter; X50.1XXA Overexertion from prolonged static or awkward postures, initial encounter
CPT/HCPCS: 73521-TC-FY; 73552-TC-RT-FY; 73562-TC-RT-FY; 73590-TC-RT-FY; 73610-TC-RT-FY; 73630-TC-RT-FY; 99283-25

== ENCOUNTER 2023-12-27 09:44 | Emergency (ER) | payer OTHER ==
[2023-12-27 09:51] VITALS: BP 120/80; PULSE 69; RESP 18; TEMP 98; BMI 34.5
[2023-12-27] MEDS ORDERED: predniSONE 20 MG TABLET (UD) ONE (10:21)
[2023-12-27] MEDS: predniSONE 20 MG TABLET (UD) PO ONE (10:22)
== END 2023-12-27 10:25 | disposition home or self-care (01) ==
LOC: JERFT 09:44
DX: R21 Rash and other nonspecific skin eruption (principal); L23.7 Allergic contact dermatitis due to plants, except food
CPT/HCPCS: 99283-25